=== PATIENT | female | born 1995 | race Caucasian/White ===

== ENCOUNTER 2022-04-13 16:42 | Emergency (ER) | payer BC, SELFPAY ==
[2022-04-13 16:55] VITALS: BP 126/80; PULSE 79; RESP 16; TEMP 36.4; O2SAT 99
--- NOTE | 2022-04-13 17:10 | ED.URI ---
HPI - URI/Sore Throat General Chief Complaint: Upper Respiratory Infection Stated Complaint: Sore Throat,Headache Time Seen by Provider: 04/13/22 17:10 Source: patient and RN notes reviewed Mode of arrival: ambulatory Limitations: no limitations History of Present Illness HPI Narrative: 27-year-old female presents to the [facility] with complaints of a sore throat since Wednesday, 3 days. Took at home COVID rapid test this morning. Cough started this morning. Patient denies any fevers. No treatment prior to arrival Related Data Home Medications Medication Instructions Recorded Confirmed dextroamphetamine-amphetamine 30 30 mg PO DAILY 04/13/22 04/13/22 mg tablet diazepam 5 mg tablet 5 mg PO BID 04/13/22 04/13/22 fluoxetine 20 mg capsule 60 mg PO DAILY 04/13/22 04/13/22 lamotrigine 25 mg tablet 50 mg PO HS 04/13/22 04/13/22 metoprolol succinate 25 mg 25 mg PO DAILY 04/13/22 04/13/22 tablet,extended release 24 hr mirtazapine 7.5 mg tablet 7.5 mg PO HS 04/13/22 04/13/22 Allergies Allergy/AdvReac Type Severity Reaction Status Date / Time fluvoxamine [From [facility]] Allergy Intermediate Rash Verified 04/13/22 17:06 sertraline Allergy Intermediate Rash Verified 04/13/22 17:06 Review of Systems Review of Systems: All systems reviewed & are unremarkable except as noted in HPI and below Constitutional: Constitutional: Reports no additional constitutional complaints, Denies chills and Denies fever(s) Eyes: Eyes: Reports no additional eye complaints ENT: Reports as per HPI Cardiovascular: Cardiovascular: Reports no additional cardiovascular complaints Respiratory: Respiratory: Reports as per HPI and Reports cough Gastrointestinal: Gastrointestinal: Reports no additional gastrointestinal complaints Musculoskeletal: Musculoskeletal: Reports no additional musculoskeletal complaints Integumentary/Breasts: Skin/Breast: Reports system reviewed and no additional complaints, except as docu Neurologic: Reports system reviewed and no additional complaints, except as documented Psychiatric: Psychiatric: Reports no additional psychiatric complaints Allergic/Immunologic: Allergic/Immunologic: Reports no additional allergic/immunologic complaints PMFSH Past Medical History Medical History Anxiety and depression Hypertension Surgical History Surgical History No history of previous surgery Social History Social History (Updated 04/13/22 @ 17:19 by Gloria Meyers APRN) Gender identity (if verbalized by the patient): Female Comments At the time of my signature, I reviewed and agree with the nursing past medical, surgical, social, and family history. There is no relevant family history pertinent to the patient complaint. Exam Const: General: healthy appearing, no acute distress and alert Nutritional Appearance: well nourished and obese Orientation/consciousness: patient oriented x3 Limitations: no limitations HENMT: Head: normal to inspection Ears: external ears normal, EAC's normal and TM abnormal with fluid behind the TM bilateral; not bulging, not bullous, not erythematous and with no loss of landmarks General nose exam: Normal external nose present, Normal nares present and Normal nasal mucous membranes and turbinates present Face and sinus: normal facial exam Mouth: Yes Normal oral and palatal mucosa present, Yes lip normal and Yes tongue normal Throat: tonsils normal, uvula midline, posterior oropharynx abnormal cobblestoning, postnasal drainage and no uvular edema Eyes: General: appearance normal, both eyes and all related structures Conjunctivae: conjunctivae normal Pupils: Equal, round and reactive pupils present Neck: Neck: normal visual inspection, no lymphadenopathy and no meningeal signs Chest: Chest palpation & inspection: normal inspection of the chest Resp: Effort & Inspection: normal
== END 2022-04-13 17:22 | disposition home or self-care (01) ==
PROVIDERS: Emergency Provider Nurse Practitioner
DX: J06.9 Acute upper respiratory infection, unspecified (principal); H65.03 Acute serous otitis media, bilateral; R09.82 Postnasal drip; I10 Essential (primary) hypertension; F41.9 Anxiety disorder, unspecified; F32.A Depression, unspecified
CPT/HCPCS: 99202; G0463